=== PATIENT | male | born 1970 | race Caucasian/White ===

== ENCOUNTER 2025-04-11 08:00 | Outpatient (CLI) | payer OTHER ==
[~2025-04-11] VITALS: Ht 180.3 cm; Wt 113.4 kg
[2025-04-11 09:37] LABS: BASO % 0.4 % (0.1-1.2); EOS # 0.18 (0.04-0.54); EOS % 2.4 % (0.7-7.0); LYMPH # 1.81 (1.18-3.74); LYMPH % 24.4 % (19.3-53.1); MEAN PLATELET VOLUME 10.90 fl (9.4-12.4); MONO # 0.71 (0.24-0.82); MONO % 9.6 % (4.7-12.5); NEUT # 4.65 (1.56-6.13); NEUT % 62.8 % (34.0-71.1); RED CELL DISTRIBUTION WIDTH 11.9 % (11.6-14.4)
[2025-04-11 09:53] VITALS: BP 143/83
[2025-04-11] MEDS ORDERED: AVAPRO300 MG PO (09:55)
[2025-04-11] MEDS ORDERED: TOPROL XL50 M1 PO (09:56)
[2025-04-11] MEDS ORDERED: ATORVASTATIN CA10 MG (09:56)
[2025-04-11] MEDS ORDERED: METFORMIN HCL500 M3 PO (09:56)
[2025-04-11 10:07] LABS: INR 1.03
[2025-04-11 10:12] LABS: ALT/SGPT 29.0 U/L (12-78); AST/SGOT 20.0 U/L (15-37); BILIRUBIN TOTAL 0.39 mg/dL (0.3-1.2); BUN CREA RATIO 15.0 (7.0-25.0); CREATININE SERUM 1.14 mg/dL (0.70-1.30); GFR 66.69; GLOBULINA 3.9 G/DL (2.4-3.5); GLUCOSE FASTING 96.0 mg/dL (65-100); OSMOLALITY SERUM 285.0 MOSM/KG (275-295)
[2025-04-11 10:49] LABS: URINE APPEARANCE Clear; URINE BILIRRUBIN Negative (NEGATIVE); URINE BLOOD Negative; URINE COLOR Yellow; URINE GLUCOSE Negative (NEGATIVE); URINE KETONE Negative (NEGATIVE); URINE LEUKOCYTE Negative; URINE NITRATE Negative; URINE PROTEIN Negative (NEGATIVE); URINE UROBILINOGEN 0.2 E.U./dl
[2025-04-11 10:52] LABS: URINE BACTERIA 7.1 uL (0.0-1933); URINE EPITHELIAL CELLS 2.4 uL (0.0-38.8); URINE WBC 2.3 uL (0.0-23.2)
[2025-04-11 10:53] LABS: URINE CAST 0.00 uL (0.0-1.40); URINE RBC 0.7 uL (0.0-20.8)
== END 2025-04-11 08:30 | disposition home or self-care (01) ==
LOC: RAD 08:00 → ADM 08:45 → CIR.AMB 04-26 08:45 → EDSTATUS 04-26 08:45 → CIR.AMB 04-26 09:00
PROVIDERS: ATTEND Orthopaedic Surgery
DX: M75.122 Complete rotator cuff tear or rupture of left shoulder, not specified as traumatic (principal); M75.22 Bicipital tendinitis, left shoulder; M24.112 Other articular cartilage disorders, left shoulder